=== PATIENT | male | born 1970 | race Caucasian/White ===

== ENCOUNTER 2017-11-09 12:14 | Inpatient (IN) ==
[2017-11-09] MEDS ORDERED: Aspirin 325 MG TABLET PO ONE (12:35)
[2017-11-09] MEDS ORDERED: Ipratropium/Albuterol Neb 3 ML IH ONE (12:59)
--- NOTE | 2017-11-09 13:00 | Emergency Department Note ---
Disposition Clinical Impression: Atrial fibrillation Qualifiers: Atrial fibrillation type: persistent Qualified Code(s): I48.1 - Persistent atrial fibrillation Pneumonia Qualifiers: Pneumonia type: due to unspecified organism Laterality: unspecified laterality Lung location: unspecified part of lung Qualified Code(s): J18.9 - Pneumonia, unspecified organism Aspiration pneumonia Qualifiers: Aspiration pneumonia type: unspecified Laterality: unspecified laterality Lung location: unspecified part of lung Qualified Code(s): J69.0 - Pneumonitis due to inhalation of food and vomit Disposition: Admitted As Inpatient Condition: Good Time of Disposition: 15:37 Arrhythmia/Palpitations HPI - General Chief Complaint: ED Arrhythmia/Palpitations Stated Complaint: Abnormal EKG Time Seen by Provider: 11/09/17 12:19 Source: patient, family () Limitations: no limitations Nursing Notes Reviewed: Yes Vital Signs Reviewed: Yes - History of Present Illness HPI Narrative: 47-year-old male history of hypertension presents an emergency department for abnormal EKG. He presented to his primary care physician's office Ira complaint of cough and congestion over the past 2 days. He was found to be an atrial fibrillation. He was sent here for further evaluation. On arrival here patients in atrial fibrillation with rapid ventricular response 111 beats per minute. He reports congestion in his chest unable to cough it up. He has some associated shortness of breath and chest tightness near the midsternum. He does admit over the weekend drinking alcohol more the his typical usage. Denies history of irregular heart rhythm. He is noticed some wheezing as well. Otherwise he states his noticed the fever hundred .9 last night. Otherwise he has been using inhaler for history of asthma without much relief. He denies any history of blood clots. Pt Subjective Complaint: "heart racing", atrial fibrillation - Related Data Home Medications Medication Instructions Recorded Confirmed Acetaminophen/Diphenhydramine 2 tab PO HS 11/09/17 11/09/17 [Acetaminophen Pm Caplet] Albuterol Sulfate [Proair Hfa] 1 - 2 puff IH Q4-6H PRN 11/09/17 11/09/17 Lisinopril [Zestril] 40 mg PO DAILY 11/09/17 11/09/17 Omeprazole [PriLOSEC] 20 mg PO DAILY 11/09/17 11/09/17 Previous Rx's Medication Instructions Recorded Tramadol HCl [Ultram] 50 mg PO TID PRN #15 tab 02/17/17 Allergies Allergy/AdvReac Type Severity Reaction Status Date / Time Penicillins Allergy See Verified 11/09/17 12:35 Comments All systems ED: reviewed and negative except as stated. Review of Systems: As Per HPI Constitutional: Reports: fever. Denies: chills ENT ED: Reports: congestion Cardiovascular: Reports: chest pain, dyspnea on exertion. Denies: palpitations Respiratory: Reports: cough, dyspnea, wheezes. Denies: hemoptysis Gastrointestinal: Denies: abdominal pain, nausea, vomiting Genitourinary: Denies: urgency, dysuria Musculoskeletal: Denies: back pain, neck pain Integumentary: Denies: rash, abrasion Neurological: Denies: headache Psychiatric: Denies: anxiety, depression Past Medical History - Past Medical History Attestation: Yes The following information was validated with the patient. Source: patient Medical history: Reports: hypertension, other Psychiatric history: Reports: no psych history - Social History Smoking Status: Never smoker Smokeless Tobacco Status: No Alcohol use: Reports: occasionally Drug use: Reports: none Physical Exam - General Limitations: no limitations General appearance: alert, in no apparent distress, obese - Head Head exam: atraumatic, normocephalic, normal inspection - Eye Eye exam: Present: normal appearance, PERRL, EOMI - ENT ENT exam: normal exam, normal oropharynx, mucous membranes moist - Neck Neck exam: Present: normal inspection, full ROM, trachea midline - Chest Chest inspection: Present: normal inspection, symmetric chest wall rise, tenderness (Midsternum) - Respiratory Respiratory exam: Present: wheezes (Diffuse) - Cardiovascular Cardiovascular exam: Present: tachycardia, irregular rhythm, normal heart sounds - Abdominal Exam Abdominal exam: Present: soft (Obese), Non-Tender, normal bowel sounds. Absent : tenderness, distention, guarding, rebound, rigidity - Extremities Exam Extremities exam: Present: normal inspection, full ROM, other (lymphedema). Absent: tenderness, calf tenderness - Neurological Exam Neurological exam: Present: alert, oriented X3 - Psychiatric Psychiatric exam: Present: normal affect, normal mood - Skin Skin exam: Present: warm, dry, intact, normal color. Absent: rash, cyanosis, diaphoresis Course Course Narrative: On reevaluation patient reports significant improvement of his breathing after coughing up piece of phlegm. He however continues to have some wheezing. After the breathing treatment he still continues to have some chest tightness and expiratory wheezes. His CBC is back in unremarkable. His initial chemistry heme allies and is being we drawn. Troponin unremarkable. TSH unremarkable. Chest x-ray shows cardiomegaly. BNP unremarkable. At this time his CHADSVASC scores 1 putting him at LOW risk. He will need admission for consideration for anticoagulation. Will await his chemistry and also evaluate with CT of the chest to evaluate for possible pulmonary embolism which may explain his atrial fibrillation. Patients in agreement with this plan. - Reevaluation(s) Reevaluation #1: BMP shows normal creatinine. CT of the chess to evaluate for pulmonary embolism was negative for any central large pulmonary embolism. There are concerning findings for infectious bronchiolitis with mucous plugging. Concerning for aspiration. Patient recently was at a convention and Ms. alcohol use concerning for possible aspiration event from this. Dr. Villanueva my attending spoke to the hospitalist Deb Livingston and informed them of the CT findings for concern of aspiration and recommended broadening antibiotic coverage. Otherwise will add impression aspiration pneumonia. Patient remains in stable condition. His atrial fibrillation is rate controlled. - Consultations Consultation #1: Spoke with on-call hospitalist alexandra Reed to admit for new onset atrial fibrillation, rate controlled. No further orders at this time. Awaiting CT scan to evaluate for PE. Vital Signs Temperature 98.3 F 11/09/17 12:16 Pulse Rate 124 11/09/17 12:16 Respiratory Rate 24 11/09/17 12:16 Blood Pressure 159/100 11/09/17 12:16 O2 Sat by Pulse Oximetry 100 11/09/17 12:16 Temperature 98.2 F 11/09/17 17:41 Pulse Rate 110 11/09/17 17:41 Respiratory Rate 20 11/09/17 17:41 Blood Pressure 138/86 11/09/17 17:41 O2 Sat by Pulse Oximetry 100 11/09/17 18:57 Oxygen Delivery Oxygen Delivery Room Air Arrhythmia/Palpitations - MDM Narrative Medical decision making narrative: Patient was discussed with my attending physician who agrees with ED management and final disposition. They independently evaluated the patient. Please refer to their attestation to this encounter for additional information. This note was generated by [employer] voice recognition software and as a result grammatical or spelling errors may occur using this program. - Medical Records Medical records reviewed: Yes I reviewed the patient's medical records. - Lab Data Lab results reviewed: Yes I reviewed the patient's lab results. Result diagrams: 11/09/17 12:50 11/09/17 15:30 Lab Results 11/09/17 11/09/17 11/09/17 Range/Units 12:42 12:50 12:50 WBC 5.1 (4.3-11.1) K/mcL RBC 4.84 (4.19-5.50) M/mcL Hgb 13.1 (12.9-16.9) g/dL Hct 42.7 (37.5-50.1) % MCV 88.2 (83.0-100.0) fL MCH 27.1 L (28.0-33.3) pg MCHC 30.7 L (31.6-35.5) g/dL RDW 15.4 H (11.5-14.5) % Plt Count 217 (140-400) K/mcL MPV 10.8 (9.4-12.4) fL Immature Gran % 0.4 (0-4) % Seg Neutrophils % 65.6 % Lymphocytes % 21.4 % Monocytes % 10.0 % Eosinophils % 2.0 % Basophils % 0.6 % Neutrophils # 3.3 (1.6-8.9) K/mcL Lymphocytes # 1.1 (0.6-4.6) K/mcL Monocytes # 0.5 (0.0-1.3) K/mcL Eosinophils # 0.1 (0.0-0.6) K/mcL Basophils # 0.0 (0.0-0.2) K/mcL PT 12.0 (9.4-12.1) Seconds INR 1.1 APTT 27.9 (26.0-36.0) Seconds Sodium Potassium Chloride Carbon Dioxide BUN Creatinine Est GFR ( Amer) Est GFR (Non-Af Amer) BUN/Creatinine Ratio Glucose Calculated Osmolality Calcium Magnesium Troponin I (< 0.04) ng/mL B-Natriuretic Peptide (Less than 100) pg/mL TSH (0.340-5.600) mcIU/mL Urine Color Yellow (Yellow) Urine Clarity Clear (Clear) Urine pH 7.0 (5.0-8.0) pH Units Ur Specific [place] 1.015 (1.010-1.025) Urine Protein Negative (Neg-Trace) mg/dL Urine Glucose (UA) Normal (Normal) mg/dL Urine Ketones Negative (Negative) mg/dL Urine Blood Negative (Negative) Urine Nitrite Negative (Negative) Urine Bilirubin Negative (Negative) Urine Urobilinogen >=8.0 H (Normal) mg/dL Ur Leukocyte Esterase Negative (Negative) Ur Culture Indicated? NO (NO) Specimen Rejected 11/09/17 11/09/17 11/09/17 Range/Units 12:50 12:50 12:50 WBC (4.3-11.1) K/mcL RBC (4.19-5.50) M/mcL Hgb (12.9-16.9) g/dL Hct (37.5-50.1) % MCV (83.0-100.0) fL MCH (28.0-33.3) pg MCHC (31.6-35.5) g/dL RDW (11.5-14.5) % Plt Count (140-400) K/mcL MPV (9.4-12.4) fL Immature Gran % (0-4) % Seg Neutrophils % % Lymphocytes % % Monocytes % % Eosinophils % % Basophils % % Neutrophils # (1.6-8.9) K/mcL Lymphocytes # (0.6-4.6) K/mcL Monocytes # (0.0-1.3) K/mcL Eosinophils # (0.0-0.6) K/mcL Basophils # (0.0-0.2) K/mcL PT (9.4-12.1) Seconds INR APTT (26.0-36.0) Seconds Sodium Cancelled Potassium Cancelled Chloride Cancelled Carbon Dioxide Cancelled BUN Cancelled Creatinine Cancelled Est GFR ( Amer) Cancelled Est GFR (Non-Af Amer) Cancelled BUN/Creatinine Ratio Cancelled Glucose Cancelled Calculated Osmolality Cancelled Calcium Cancelled Magnesium Cancelled Troponin I < 0.03 (< 0.04) ng/mL B-Natriuretic Peptide 84 (Less than 100) pg/mL TSH 2.006 (0.340-5.600) mcIU/mL Urine Color (Yellow) Urine Clarity (Clear) Urine pH (5.0-8.0) pH Units Ur Specific [place] (1.010-1.025) Urine Protein (Neg-Trace) mg/dL Urine Glucose (UA) (Normal) mg/dL Urine Ketones (Negative) mg/dL Urine Blood (Negative) Urine Nitrite (Negative) Urine Bilirubin (Negative) Urine Urobilinogen (Normal) mg/dL Ur Leukocyte Esterase (Negative) Ur Culture Indicated? (NO) Specimen Rejected Hemolyzed 11/09/17 Range/Units 15:30 WBC (4.3-11.1) K/mcL RBC (4.19-5.50) M/mcL Hgb (12.9-16.9) g/dL Hct (37.5-50.1) % MCV (83.0-100.0) fL MCH (28.0-33.3) pg MCHC (31.6-35.5) g/dL RDW (11.5-14.5) % Plt Count (140-400) K/mcL MPV (9.4-12.4) fL Immature Gran % (0-4) % Seg Neutrophils % % Lymphocytes % % Monocytes % % Eosinophils % % Basophils % % Neutrophils # (1.6-8.9) K/mcL Lymphocytes # (0.6-4.6) K/mcL Monocytes # (0.0-1.3) K/mcL Eosinophils # (0.0-0.6) K/mcL Basophils # (0.0-0.2) K/mcL PT (9.4-12.1) Seconds INR APTT (26.0-36.0) Seconds Sodium 138 Potassium 4.2 Chloride 105 Carbon Dioxide 27 BUN 12 Creatinine 0.48 L Est GFR ( Amer) > 60 Est GFR (Non-Af Amer) > 60 BUN/Creatinine Ratio 25 Glucose 89 Calculated Osmolality 285 Calcium 8.8 Magnesium 2.3 Troponin I (< 0.04) ng/mL B-Natriuretic Peptide (Less than 100) pg/mL TSH (0.340-5.600) mcIU/mL Urine Color (Yellow) Urine Clarity (Clear) Urine pH (5.0-8.0) pH Units Ur Specific [place] (1.010-1.025) Urine Protein (Neg-Trace) mg/dL Urine Glucose (UA) (Normal) mg/dL Urine Ketones (Negative) mg/dL Urine Blood (Negative) Urine Nitrite (Negative) Urine Bilirubin (Negative) Urine Urobilinogen (Normal) mg/dL Ur Leukocyte Esterase (Negative) Ur Culture Indicated? (NO) Specimen Rejected - Radiology Data Radiology results reviewed: Yes I reviewed the patient's radiology results. Chest X-Ray 11/09/17 12:35 IMPRESSION: Cardiomegaly. No radiographic evidence of acute pulmonary disease. D/ / Elvin Sepulveda / Elvin Sepulveda Interpreting Provider: Elvin Sepulveda Chest CTA 11/09/17 15:25 IMPRESSION: 1. Limited evaluation of the segmental and subsegmental pulmonary arterial branches. No central pulmonary embolism is detected. 2. Inflammatory tree-in-bud nodules within the left lower lobe, along with ground-glass opacity, compatible with infectious bronchiolitis along with bronchopneumonia. There is also associated bronchial wall thickening and mucous plugging. 3. Correlate with any clinical evidence of aspiration. 4. Relatively prominent mural thickening involving the distal esophagus. Correlate with clinical evidence of esophagitis. Direct visualization should be considered. D/ / Neeraj Pulliam MD / Neeraj Pulliam MD Interpreting Provider: Neerja Pulliam MD - EKG Data EKG attestation: Yes I reviewed and interpreted this EKG. EKG results narrative: EKG performed 1222 atrial fibrillation with rapid ventricular response 111 beats per minute, no ST elevation or depression, no T-wave version. Moderate intraventricular conduction delay QRS 114. Intervals within normal limits. There is no old EKG available for comparison at this time other than at primary care physician which showed atrial fibrillation as well suspected new onset. Attestation Statement - Attestation Attestation: I, Sunny Villanueva DO, examined this patient [id number] and my medical decision-making was reviewed with Art Brady DO , Resident Physician. I agree with the documented findings, disposition and treatment plan as described except to the extent set forth below. Please see my progress notes for details.
[2017-11-09 13:20] LABS: Bilirubin,Urine Negative (Negative); Blood,Urine Negative (Negative); Clarity,Urine Clear (Clear); Color,Urine Yellow (Yellow); Glucose,Urine (UA) Normal (Normal); Ketones,Urine Negative (Negative); Leukocyte Esterase,Urine Negative (Negative); Nitrite,Urine Negative (Negative); Protein,Urine Negative (Neg-Trace); Specific Gravity,Urine 1.015 (1.010-1.025); Urobilinogen,Urine >=8.0 mg/dL (Normal)
[2017-11-09 13:22] LABS: Basophils % 0.6 %; Eosinophils # 0.1 K/mcL (0.0-0.6); Hematocrit 42.7 % (37.5-50.1); Hemoglobin 13.1 g/dL (12.9-16.9); Immature Granulocytes % 0.4 % (0-4); Lymphocytes # 1.1 K/mcL (0.6-4.6); Lymphocytes % 21.4 %; Mean Corpuscular HGB Conc 30.7 g/dL (31.6-35.5); Mean Corpuscular Hemoglobin 27.1 pg (28.0-33.3); Mean Corpuscular Volume 88.2 fL (83.0-100.0); Mean Platelet Volume 10.8 fL (9.4-12.4); Monocytes # 0.5 K/mcL (0.0-1.3); Neutrophils # 3.3 K/mcL (1.6-8.9); Platelet Count 217 K/mcL (140-400); Red Blood Count 4.84 M/mcL (4.19-5.50); Red Cell Distribution Width 15.4 % (11.5-14.5); Segmented Neutrophils % 65.6 %
[2017-11-09 13:39] LABS: Troponin I < 0.03 ng/mL (< 0.04)
[2017-11-09 13:52] LABS: Thyroid Stimulating Hormone 2.006 mcIU/mL (0.340-5.600)
--- NOTE | 2017-11-09 14:06 | Emergency Department Note ---
Disposition Clinical Impression: Pneumonia Atrial fibrillation Qualifiers: Atrial fibrillation type: persistent Qualified Code(s): I48.1 - Persistent atrial fibrillation Disposition: Admitted As Inpatient Condition: Good Time of Disposition: 17:36 General Adult HPI - General Chief complaint: ED Arrhythmia/Palpitations Stated complaint: Abnormal EKG Time Seen by Provider: 11/09/17 12:19 Source: patient Limitations: no limitations - History of Present Illness Pain Scale: 0 - Related Data Home Medications Medication Instructions Recorded Confirmed Acetaminophen/Diphenhydramine 2 tab PO HS 11/09/17 11/09/17 [Acetaminophen Pm Caplet] Albuterol Sulfate [Proair Hfa] 1 - 2 puff IH Q4-6H PRN 11/09/17 11/09/17 Lisinopril [Zestril] 40 mg PO DAILY 11/09/17 11/09/17 Omeprazole [PriLOSEC] 20 mg PO DAILY 11/09/17 11/09/17 Previous Rx's Medication Instructions Recorded Tramadol HCl [Ultram] 50 mg PO TID PRN #15 tab 02/17/17 Allergies Allergy/AdvReac Type Severity Reaction Status Date / Time Penicillins Allergy See Verified 11/09/17 12:35 Comments Past Medical History - Past Medical History Medical history: Reports: hypertension, other Psychiatric history: Reports: no psych history - Social History Smoking Status: Never smoker Smokeless Tobacco Status: No Alcohol use: Reports: occasionally Drug use: Reports: none Physical Exam - General Limitations: no limitations General appearance: alert, in no apparent distress Course Vital Signs Temperature 98.3 F 11/09/17 12:16 Pulse Rate 124 11/09/17 12:16 Respiratory Rate 24 11/09/17 12:16 Blood Pressure 159/100 11/09/17 12:16 O2 Sat by Pulse Oximetry 100 11/09/17 12:16 Temperature 98.6 F 11/09/17 17:26 Pulse Rate 104 11/09/17 15:05 Respiratory Rate 20 11/09/17 17:26 Blood Pressure 153/104 11/09/17 17:26 O2 Sat by Pulse Oximetry 100 11/09/17 15:05 Oxygen Delivery Oxygen Delivery Room Air Medical Decision Making - Lab Data Result diagrams: 11/09/17 12:50 11/09/17 15:30 Lab Results 11/09/17 11/09/17 11/09/17 Range/Units 12:42 12:50 12:50 WBC 5.1 (4.3-11.1) K/mcL RBC 4.84 (4.19-5.50) M/mcL Hgb 13.1 (12.9-16.9) g/dL Hct 42.7 (37.5-50.1) % MCV 88.2 (83.0-100.0) fL MCH 27.1 L (28.0-33.3) pg MCHC 30.7 L (31.6-35.5) g/dL RDW 15.4 H (11.5-14.5) % Plt Count 217 (140-400) K/mcL MPV 10.8 (9.4-12.4) fL Immature Gran % 0.4 (0-4) % Seg Neutrophils % 65.6 % Lymphocytes % 21.4 % Monocytes % 10.0 % Eosinophils % 2.0 % Basophils % 0.6 % Neutrophils # 3.3 (1.6-8.9) K/mcL Lymphocytes # 1.1 (0.6-4.6) K/mcL Monocytes # 0.5 (0.0-1.3) K/mcL Eosinophils # 0.1 (0.0-0.6) K/mcL Basophils # 0.0 (0.0-0.2) K/mcL PT 12.0 (9.4-12.1) Seconds INR 1.1 APTT 27.9 (26.0-36.0) Seconds Sodium Potassium Chloride Carbon Dioxide BUN Creatinine Est GFR ( Amer) Est GFR (Non-Af Amer) BUN/Creatinine Ratio Glucose Calculated Osmolality Calcium Magnesium Troponin I (< 0.04) ng/mL B-Natriuretic Peptide (Less than 100) pg/mL TSH (0.340-5.600) mcIU/mL Urine Color Yellow (Yellow) Urine Clarity Clear (Clear) Urine pH 7.0 (5.0-8.0) pH Units Ur Specific [place] 1.015 (1.010-1.025) Urine Protein Negative (Neg-Trace) mg/dL Urine Glucose (UA) Normal (Normal) mg/dL Urine Ketones Negative (Negative) mg/dL Urine Blood Negative (Negative) Urine Nitrite Negative (Negative) Urine Bilirubin Negative (Negative) Urine Urobilinogen >=8.0 H (Normal) mg/dL Ur Leukocyte Esterase Negative (Negative) Ur Culture Indicated? NO (NO) Specimen Rejected 11/09/17 11/09/17 11/09/17 Range/Units 12:50 12:50 12:50 WBC (4.3-11.1) K/mcL RBC (4.19-5.50) M/mcL Hgb (12.9-16.9) g/dL Hct (37.5-50.1) % MCV (83.0-100.0) fL MCH (28.0-33.3) pg MCHC (31.6-35.5) g/dL RDW (11.5-14.5) % Plt Count (140-400) K/mcL MPV (9.4-12.4) fL Immature Gran % (0-4) % Seg Neutrophils % % Lymphocytes % % Monocytes % % Eosinophils % % Basophils % % Neutrophils # (1.6-8.9) K/mcL Lymphocytes # (0.6-4.6) K/mcL Monocytes # (0.0-1.3) K/mcL Eosinophils # (0.0-0.6) K/mcL Basophils # (0.0-0.2) K/mcL PT (9.4-12.1) Seconds INR APTT (26.0-36.0) Seconds Sodium Cancelled Potassium Cancelled Chloride Cancelled Carbon Dioxide Cancelled BUN Cancelled Creatinine Cancelled Est GFR ( Amer) Cancelled Est GFR (Non-Af Amer) Cancelled BUN/Creatinine Ratio Cancelled Glucose Cancelled Calculated Osmolality Cancelled Calcium Cancelled Magnesium Cancelled Troponin I < 0.03 (< 0.04) ng/mL B-Natriuretic Peptide 84 (Less than 100) pg/mL TSH 2.006 (0.340-5.600) mcIU/mL Urine Color (Yellow) Urine Clarity (Clear) Urine pH (5.0-8.0) pH Units Ur Specific [place] (1.010-1.025) Urine Protein (Neg-Trace) mg/dL Urine Glucose (UA) (Normal) mg/dL Urine Ketones (Negative) mg/dL Urine Blood (Negative) Urine Nitrite (Negative) Urine Bilirubin (Negative) Urine Urobilinogen (Normal) mg/dL Ur Leukocyte Esterase (Negative) Ur Culture Indicated? (NO) Specimen Rejected Hemolyzed 11/09/17 Range/Units 15:30 WBC (4.3-11.1) K/mcL RBC (4.19-5.50) M/mcL Hgb (12.9-16.9) g/dL Hct (37.5-50.1) % MCV (83.0-100.0) fL MCH (28.0-33.3) pg MCHC (31.6-35.5) g/dL RDW (11.5-14.5) % Plt Count (140-400) K/mcL MPV (9.4-12.4) fL Immature Gran % (0-4) % Seg Neutrophils % % Lymphocytes % % Monocytes % % Eosinophils % % Basophils % % Neutrophils # (1.6-8.9) K/mcL Lymphocytes # (0.6-4.6) K/mcL Monocytes # (0.0-1.3) K/mcL Eosinophils # (0.0-0.6) K/mcL Basophils # (0.0-0.2) K/mcL PT (9.4-12.1) Seconds INR APTT (26.0-36.0) Seconds Sodium 138 Potassium 4.2 Chloride 105 Carbon Dioxide 27 BUN 12 Creatinine 0.48 L Est GFR ( Amer) > 60 Est GFR (Non-Af Amer) > 60 BUN/Creatinine Ratio 25 Glucose 89 Calculated Osmolality 285 Calcium 8.8 Magnesium 2.3 Troponin I (< 0.04) ng/mL B-Natriuretic Peptide (Less than 100) pg/mL TSH (0.340-5.600) mcIU/mL Urine Color (Yellow) Urine Clarity (Clear) Urine pH (5.0-8.0) pH Units Ur Specific [place] (1.010-1.025) Urine Protein (Neg-Trace) mg/dL Urine Glucose (UA) (Normal) mg/dL Urine Ketones (Negative) mg/dL Urine Blood (Negative) Urine Nitrite (Negative) Urine Bilirubin (Negative) Urine Urobilinogen (Normal) mg/dL Ur Leukocyte Esterase (Negative) Ur Culture Indicated? (NO) Specimen Rejected Attestation Statement - Attestation Attestation: I, Sunny Villanueva DO, examined this patient [id number] and my medical decision-making was reviewed with Art Brady DO , Resident Physician. I agree with the documented findings, disposition and treatment plan as described except to the extent set forth below. Please see my progress notes for details. 47-year-old male presents to the emergency room for evaluation of abnormal EKG. Patient was at his office today getting evaluated for upper respiratory infection cough and cold. EKG was collected at that facility were concerned for the presentation. Patient is found to have A. fib RVR. Patient has never had anything like this before. He is morbidly obese and has significant truncal obesity but denies any history of cardiac related disease or pulmonary related illness. Patient does have underlying asthma that he does feel like is exacerbated at this point. He is currently denying chest pain fevers chills nausea vomiting diarrhea. His any headache or vision change. He does have increased work of breathing and difficulty taking full breaths. Patient will be provided breathing treatments, chest x-ray EKG labs including magnesium troponin and BNP. Patient will most likely require admission the hospital for definitive management. His heart rate has fluctuated from 92-110 bpm. No acute intervention required at this point considering his blood pressure and his heart rate of been stable. Disposition to be determined was a full workup and treatment course are established. Patient does not take aspirin at this point. He was given a single aspirin here. Disposition will be determined once workup is completed. Patient does not require anticoagulation at this point considering his chads vasc score is low. see detailed documentation of the physical exam, medical intervention, medical decision-making and disposition in the resident physician's note. No critical care provider the patient's treatment course at this time. 1425 Patient is feeling better after breathing treatment. Chest x-ray is unremarkable outside a cardiomegaly. Patient has stable CBC urinalysis negative troponin and BNP at this time. Patient will still require admission for further evaluation of his cardiac arrhythmia at this point. Patient is otherwise clinically stable and feeling better this time. Patient will be given a second set of intravenous. CT angiography chest with be ordered to rule out any other potential pulmonary source of this point. Patient will be admitted for definitive management. Hospitalist was contacted. No other concerns or issues noted from nurse out at this point. 1700 CT angiography of the chest does not show any acute signs of central pulmonary emboli. Limited study secondary to poor infusion of contrast. Patient does have potential tree-in-bud formation consistent with pneumonia. Antibiotics were ordered by the hospitalist on my review of the chart. Patient otherwise is being symptomatically treated for what appears to be possible pneumonia exacerbating the A. fib RVR that is a new diagnosis of this point. Patient's heart rate has been rate controlled initially without any medical intervention being required. Patient was admitted to the floor without a Cardizem drip started this time considering his heart rate was less than 105 throughout the majority treatment course here in the emergency room. This information will be passed on the hospitalist.
[2017-11-09 14:28] LABS: INR 1.1
[2017-11-09 14:31] LABS: Activated Partial Thrombo Time 27.9 Seconds (26.0-36.0)
[2017-11-09] MEDS ORDERED: Isovue-370 500 ML INFUS..BTL IV ONE (15:25)
[2017-11-09] MEDS ORDERED: traMADol 50 MG TABLET PO PRN (16:07)
[2017-11-09] MEDS ORDERED: Naloxone 0.4 MG/ML INJ IVP PRN (16:11)
--- NOTE | 2017-11-09 16:16 | Internal Med History&Physical ---
<Mary Reynoso - Last Filed: 11/09/17 16:43> Date of Encounter: 11/09/17 Time of Encounter: 16:14 Internal Medicine - H&P: HPI Admitted From: Home Plans for Post Hospital Care: Home History of present illness: 47-year-old male presents to the emergency room for evaluation of abnormal EKG. Patient was at his office today getting evaluated for upper respiratory infection cough and cold. EKG was collected at that facility were concerned for the presentation. Patient is found to have A. fib RVR. Patient has never had anything like this before. He is morbidly obese and has significant truncal obesity but denies any history of cardiac related disease or pulmonary related illness. Patient does have underlying asthma that he does feel like is exacerbated at this point. He is currently denying chest pain fevers chills nausea vomiting diarrhea. His any headache or vision change. He does have increased work of breathing and difficulty taking full breaths. At the ED, his heart rate is around 100-110, BP stable, labs were unremarkable. He will be admitted for further management. Past Med Surg Social Fam HX - Past Medical History Medical history: hypertension, other Psychiatric history: no psych history - Social History Smoking Status: Never smoker Smokeless Tobacco Status: No Alcohol use: occasionally Drug use: none Internal Medicine - H&P: Meds Tramadol HCl [Ultram] 50 mg PO TID PRN #15 tab 02/17/17 [Rx] Acetaminophen/Diphenhydramine [Acetaminophen Pm Caplet] 2 tab PO HS 11/09/17 [ History] Albuterol Sulfate [Proair Hfa] 1 - 2 puff IH Q4-6H PRN 11/09/17 [History] Lisinopril [Zestril] 40 mg PO DAILY 11/09/17 [History] Omeprazole [PriLOSEC] 20 mg PO DAILY 11/09/17 [History] 3 Allergy/AdvReac Type Severity Reaction Status Date / Time Penicillins Allergy See Verified 11/09/17 12:35 Comments All Systems PM: A 10-system review of systems was performed and is negative for pertinent findings except as documented above in the HPI. Review of systems: REVIEW OF SYSTEMS: CONSTITUTIONAL: No weight loss, fever, chills, weakness or fatigue. HEENT: Eyes: No visual loss, blurred vision, double vision or yellow sclerae. Ears, Nose, Throat: No hearing loss, sneezing, congestion, runny nose or sore throat. SKIN: No rash or itching. CARDIOVASCULAR: No chest pain, chest pressure or chest discomfort. No palpitations or edema. RESPIRATORY: No shortness of breath, cough or sputum. GASTROINTESTINAL: No anorexia, nausea, vomiting or diarrhea. No abdominal pain or blood. GENITOURINARY: No dysuria, urgency, or frequency. NEUROLOGICAL: No headache, dizziness, syncope, paralysis, ataxia, numbness or tingling in the extremities. No change in bowel or bladder control. MUSCULOSKELETAL: No muscle, back pain, joint pain or stiffness. HEMATOLOGIC: No anemia, bleeding or bruising. LYMPHATICS: No enlarged nodes. No history of splenectomy. PSYCHIATRIC: No history of depression or anxiety. ENDOCRINOLOGIC: No reports of sweating, cold or heat intolerance. No polyuria or polydipsia. - Constitutional Vitals: Temp Pulse Resp BP Pulse Ox 98.3 F 104 20 150/71 100 11/09/17 12:30 11/09/17 15:05 11/09/17 15:05 11/09/17 15:05 11/09/17 15:05 General appearance: Present: A&O X 3 Exam: PHYSICAL EXAMINATION: GENERAL APPEARANCE: The patient is alert, oriented and in no acute distress. HEENT: Head is normocephalic. The sinuses are nontender. Pupils are equal and reactive. The nares are patent. Oropharynx clear without lesions. NECK: Supple without lymphadenopathy. HEART: Regular rate and rhythm. LUNGS: No crackles or wheezes are heard. ABDOMEN: Soft, nontender, nondistended with good bowel sounds heard. Inguinal area is normal. EXTREMITIES: Without cyanosis, clubbing or edema. NEUROLOGICAL: Gross nonfocal. SKIN: Warm and dry without any rash. Internal Med - H&P Results - Labs CBC & Chem 7: 11/09/17 12:50 11/09/17 15:30 Labs: Short CBC 11/09/17 Range/Units 12:50 WBC 5.1 (4.3-11.1) K/mcL Hgb 13.1 (12.9-16.9) g/dL Hct 42.7 (37.5-50.1) % Plt Count 217 (140-400) K/mcL Neutrophils # 3.3 (1.6-8.9) K/mcL BMP 11/09/17 12:50 Sodium Cancelled Potassium Cancelled Chloride Cancelled Carbon Dioxide Cancelled BUN Cancelled Creatinine Cancelled Glucose Cancelled Calcium Cancelled Cardiac Enzymes 11/09/17 Range/Units 12:50 Troponin I < 0.03 (< 0.04) ng/mL Urine 11/09/17 Range/Units 12:42 Urine Color Yellow (Yellow) Urine Clarity Clear (Clear) Urine pH 7.0 (5.0-8.0) pH Units Ur Specific Bridger 1.015 (1.010-1.025) Urine Protein Negative (Neg-Trace) mg/dL Urine Glucose (UA) Normal (Normal) mg/dL - Impressions ITS Impressions Chest X-Ray 11/09/17 12:35 IMPRESSION: Cardiomegaly. No radiographic evidence of acute pulmonary disease. D/ / Elvin Sepulveda / Elvin Sepulveda Interpreting Provider: Elvin Sepulveda - Assessment and plan (1) Atrial fibrillation Current Visit: Yes Status: Acute Assessment and plan: 47 male with past medical history of hypertension and sleep apnea presented with new onset of atrial fibrillation. - TSH is normal, we will order echocardiogram to rule out structural abnormalities. - CHDAS2 Vas score 1, Received one dose of aspirin at ED, continue aspirin. - Heart rate was fairly well controlled without any medication, HR 100-110, will add Cardizem ER 60 mg twice a day. - Automatic Pinsetter Adjuster consulted. Qualifiers: Atrial fibrillation type: persistent Qualified Code(s): I48.1 - Persistent atrial fibrillation (2) Hypertension Current Visit: No Status: Chronic Assessment and plan: - BP elevated with SBP around 150, continue lisinopril, add Cardizem ER for bolus rate control and BP control. Qualifiers: Hypertension type: essential hypertension Qualified Code(s): I10 - Essential (primary) hypertension (3) TANNER (obstructive sleep apnea) Current Visit: No Status: Chronic Assessment and plan: - Continue CPAP. (4) Pneumonia Current Visit: Yes Status: Suspected Assessment and plan: - Chest x-ray revealed with attending, right middle lobe pneumonia suspected, will start patient empirically with IV Levaquin. - Blood culture and sputum culture ordered. Flu swabs negative. Qualifiers: Pneumonia type: due to unspecified organism Laterality: right Lung location: middle lobe of lung Qualified Code(s): J18.1 - Lobar pneumonia, unspecified organism - Time Spent With Patient Total time spent is greater than 50% in coordination of care (as documented) at patient's floor/unit and/or counseling patient: Greater than 35 minutes <Lou Singletary - Last Filed: 11/09/17 17:24> Date of Encounter: 11/09/17 Internal Medicine - H&P: HPI History of present illness: Mr. Fernandes is a 47 year old male All Systems PM: A 10-system review of systems was performed and is negative for pertinent findings except as documented above in the HPI. - Constitutional Vitals: Temp Pulse Resp BP Pulse Ox 98.3 F 104 20 150/71 100 11/09/17 12:30 11/09/17 15:05 11/09/17 15:05 11/09/17 15:05 11/09/17 15:05 Internal Med - H&P Results - Labs CBC & Chem 7: 11/09/17 12:50 11/09/17 15:30 - Attending Attestation Patient examined, reviewed the note. As per patient had fever with productive sputum for last few days but did not seek medical advice. Today he developed worsening of symptoms along with shortness of breath and chest pain therefore went to the CP office where EKG was performed with finding of A. fib. Last week patient's had pneumonia and over the weekend he was with coworker while traveling who also had severe respiratory infection and got admitted in the hospital. Therefore patient had recent exposure of possible pneumonia. Patient had history of hypertension and TANNER with CPAP, status post bariatric surgery and also had IVC filter as a prevention before the bariatric surgery. Chest x-ray radiology reading not suggestive of pneumonia but on reviewing the images it appeared right middle lobe infiltrate. Based on clinical symptoms and history of respiratory infection exposure I will treat patient for possible pneumonia with antibiotic, DuoNeb, spirometry, oxygen supplementation. It could also be leading present A. fib with RVR. At present heart rate is not significantly high therefore oral rate control medicine started along with aspirin with low chads score. Echocardiogram ordered. Will also consult cardiology. CT angiogram ordered in the ER but no report is available yet. - Assessment and plan (1) Atrial fibrillation Current Visit: Yes Status: Acute Qualifiers: Atrial fibrillation type: persistent Qualified Code(s): I48.1 - Persistent atrial fibrillation (2) Hypertension Current Visit: No Status: Chronic Qualifiers: Hypertension type: essential hypertension Qualified Code(s): I10 - Essential (primary) hypertension (3) TANNER (obstructive sleep apnea) Current Visit: No Status: Chronic (4) Pneumonia Current Visit: Yes Status: Suspected Qualifiers: Pneumonia type: due to unspecified organism Laterality: right Lung location: middle lobe of lung Qualified Code(s): J18.1 - Lobar pneumonia, unspecified organism - Time Spent With Patient Total time spent is greater than 50% in coordination of care (as documented) at patient's floor/unit and/or counseling patient:
[2017-11-09 16:23] LABS: BUN/Creatinine Ratio 25 (6-26); Blood Urea Nitrogen 12 mg/dL (6-20); Calcium 8.8 mg/dL (8.6-10.3); Carbon Dioxide 27 mEq/L (23-29); Chloride 105 mEq/L (98-107); Glucose 89 mg/dL (70-105); Magnesium 2.3 mg/dL (1.6-2.6); Osmolality,Calculated 285 (280-300); Potassium 4.2 mEq/L (3.5-5.1); Sodium 138 mEq/L (136-145); eGFR For African Americans > 60 (> 60); eGFR For Non-African Americans > 60 (> 60)
[2017-11-09] MEDS: Aspirin Enteric Coated 81 MG Tablet PO SCH (17:51)
[2017-11-09] MEDS: *HR* Heparin 5,000 UNIT/ML VIAL SQ SCH (18:33)
[2017-11-09] MEDS: Levofloxacin 750 MG/150 ML 750 MG/150 ML BAG IVPB SCH (18:33)
[2017-11-09] MEDS: Acetaminophen 325 MG TABLET PO PRN (21:55)
[2017-11-09] MEDS: Diltiazem SR (12hr) 60 MG CAPSULE PO SCH (21:56)
[2017-11-09] MEDS: Lisinopril 20 MG TABLET PO SCH (22:44)
--- NOTE | 2017-11-10 00:30 | Event Note ---
Date of Encounter: 11/09/17 Time of Encounter: 21:55 Alerted by pts. nurse to come and see pt. d/t HR ranging from 140s to 200. Pt. admitted w/new onset of Afib RVR as well as suspected pneumonia dx. Assessed pt. to find BP 145/109 and HR 179. Instructed nurse to give PO Cardizem 60 mg. Stayed w/pt. to monitor HR and BP. Re-check on BP at 22:09 150/103. Re-check at 22:17 158/123. HR was now in 120s to 150s and continuing to trend downwards. Instructed nurse to administer pts. lisinopril dose PO. SBP down to 130s to 150s. HR continuing to maintain at 110s to 130s. Consult to Cardiology placed at admission. Should consider placing pt. on Cardizem drip d/t uncontrolled HR at next Cardizem dosing. Respiratory Infection panel, Legionella/strep pneumoniae antigens ordered d/t pts. reports of SOB and pain w/coughing. Pt. on SQ heparin for DVT prophylaxis. Pt. to be monitored closely w/instructions to notify provider of any adverse changes in HR/BP/status.
[2017-11-10] MEDS: ADVIL PM PO SCH ×2 (00:57→21:04)
[2017-11-10 05:36] LABS: Basophils % 0.4 %; Eosinophils # 0.1 K/mcL (0.0-0.6); Hematocrit 39.2 % (37.5-50.1); Hemoglobin 12.2 g/dL (12.9-16.9); Immature Granulocytes % 0.4 % (0-4); Lymphocytes # 1.4 K/mcL (0.6-4.6); Lymphocytes % 28.1 %; Mean Corpuscular HGB Conc 31.1 g/dL (31.6-35.5); Mean Corpuscular Hemoglobin 27.4 pg (28.0-33.3); Mean Corpuscular Volume 87.9 fL (83.0-100.0); Mean Platelet Volume 10.6 fL (9.4-12.4); Monocytes # 0.6 K/mcL (0.0-1.3); Monocytes % 12.6 %; Neutrophils # 2.9 K/mcL (1.6-8.9); Platelet Count 196 K/mcL (140-400); Red Blood Count 4.46 M/mcL (4.19-5.50); Red Cell Distribution Width 15.4 % (11.5-14.5); Segmented Neutrophils % 56.5 %
[2017-11-10 05:55] LABS: BUN/Creatinine Ratio 19 (6-26); Blood Urea Nitrogen 13 mg/dL (6-20); Calcium 8.6 mg/dL (8.6-10.3); Carbon Dioxide 25 mEq/L (23-29); Chloride 104 mEq/L (98-107); Glucose 94 mg/dL (70-105); Osmolality,Calculated 280 (280-300); Potassium 3.9 mEq/L (3.5-5.1); Sodium 135 mEq/L (136-145); eGFR For African Americans > 60 (> 60); eGFR For Non-African Americans > 60 (> 60)
[2017-11-10] MEDS: *HR* Heparin 5,000 UNIT/ML VIAL SQ SCH ×2 (06:13→18:16)
[2017-11-10] MEDS ORDERED: Lisinopril 20 MG TABLET PO SCH (09:00)
[2017-11-10 09:10] LABS: Adenovirus Not Detected (Not Detect)
[2017-11-10 09:11] LABS: Bordetella Pertussis Not Detected (Not Detect); Chlamydophila pneumoniae Not Detected (Not Detect); Coronavirus 229E Not Detected (Not Detect); Coronavirus HKU1 Not Detected (Not Detect); Coronavirus NL63 Not Detected (Not Detect); Coronavirus OC43 Not Detected (Not Detect); Human Metapneumovirus Not Detected (Not Detect); Human Rhinovirus/Enterovirus Not Detected (Not Detect); Influenza A Subtype 2009 H1 Not Detected (Not Detect); Influenza A Untypeable Not Detected (Not Detect); Influenza B Not Detected (Not Detect); Mycoplasma pneumoniae Not Detected (Not Detect); Parainfluenza Virus 1 Not Detected (Not Detect); Parainfluenza Virus 2 Not Detected (Not Detect); Parainfluenza Virus 3 ***DETECTED*** (Not Detect); Parainfluenza Virus 4 Not Detected (Not Detect); Respiratory Syncytial Virus Not Detected (Not Detect)
--- NOTE | 2017-11-10 09:19 | Cardiology Consult Note ---
Date of Encounter: 11/10/17 Time of Encounter: 09:18 Assessment and Plan (1) Atrial fibrillation Current Visit: Yes Status: Acute New onset afib associated with pulmonary illness. Patient heart rate 90-100 in room. Increases with exertion. We will perform echo and start patient on cardizem 60mg Q6HR. CHADVASC score 1. Qualifiers: Atrial fibrillation type: persistent Qualified Code(s): I48.1 - Persistent atrial fibrillation Discussion w patient/family: The assessment and plan as outlined above was discussed with the patient and/or family members who expressed understanding and agreement. All questions were answered. Thank you for involving us in the care of your patient. Please call with any questions. History of Present Illness Consult date: 11/10/17 Consult reason: Afib History of present illness: Mr. Fernandes is a 47 year old male who presented to the ED after PCP found the patient to be in Afib. Patient has been suffering from cough and congestion for the past few days. Has never been in Afib before. Denies any cardiac history. Patient states last evening when he tried to exert himself he became very tachycardic and felt palpitations at that time. Denies palpitations or chest pain/pressure now. Denies anticoagulation use. Patient does have history of gastric bypass approximately 14 years ago. Past Med Surg Social Fam HX - Past Medical History Attestation: Yes The following information was validated with the patient. Medical history: hypertension, other Psychiatric history: no psych history - Social History Smoking Status: Never smoker Smokeless Tobacco Status: No Alcohol use: occasionally Drug use: none Medications and Allergies Tramadol HCl [Ultram] 50 mg PO TID PRN #15 tab 02/17/17 [Rx] Acetaminophen/Diphenhydramine [Acetaminophen Pm Caplet] 2 tab PO HS 11/09/17 [ History] Albuterol Sulfate [Proair Hfa] 1 - 2 puff IH Q4-6H PRN 11/09/17 [History] Lisinopril [Zestril] 40 mg PO DAILY 11/09/17 [History] Omeprazole [PriLOSEC] 20 mg PO DAILY 11/09/17 [History] 3 Allergy/AdvReac Type Severity Reaction Status Date / Time Penicillins Allergy See Verified 11/09/17 12:35 Comments All Systems Review: The remainder of the systems were reviewed and are negative - Constitutional Constitutional: no fever(s), no headache(s) - EENT Eyes: no blurred vision, no loss of vision - Cardiovascular Cardiovascular: as per HPI - Respiratory Respiratory: cough, dyspnea, wheezing, no hemoptysis - Gastrointestinal Gastrointestinal: no abdominal pain, no diarrhea - Musculoskeletal Musculoskeletal: no abnormal gait, no muscle cramps - Integumentary Integumentary: no rash - Neurological Neurological: no abnormal speech, no focal weakness Physical Examination Vital Signs, Last 4 Hours Temp Pulse Resp BP Pulse Ox 11/10/17 06:44 98.3 F 90 15 140/82 95 General: Conversant, No Apparent Distress HEENT: Atraumatic, Normocephaly, Mucus Membranes Moist Neck: No JVD, Normal carotid pulses Cardiac: Normal S1 and S2, No Murmur, Other (irregular rate, tachycardia) Lungs: Other (diffuse expiratory wheezing heard throughout) Neuro: Alert and responsive, No focal deficits noted Abdomen: Soft, Non-Tender, Other (gastric bypass surgical scar noted) Skin: No rashes noted on visualized skin Musculoskeletal: Other (Mild chest wall tenderness to palpation) Extremities: No Clubbing, No Cyanosis, Normal Pulses Results 11/10/17 05:12 11/10/17 05:12 Lab Results 11/10/17 11/10/17 05:12 05:12 WBC 5.1 Hgb 12.2 L Hct 39.2 Plt Count 196 Sodium 135 L Potassium 3.9 Chloride 104 Carbon Dioxide 25 BUN 13 Creatinine 0.67 L Glucose 94 Calcium 8.6 Consult Discharge Plan - Plan Referrals: Smooth Morejon MD [Primary Care Provider] -
--- NOTE | 2017-11-10 09:37 | Internal Med Progress Note ---
<Ahmet Mancuso - Last Filed: 11/10/17 10:21> Date of Encounter: 11/10/17 Time of Encounter: 09:37 - Assessment and plan (1) Atrial fibrillation Current Visit: Yes Status: Acute Assessment and plan: Patient was at his PCP office for URI, found to have Afib w/ RVR on EKG and recommended to go to [place]. Patient has no previous dx of afib. On admission patient was started on cardizem, and patient was not rate controlled through the night. Cardiology is consulted. afib is most likely due to URI. Will treat/support underlying URI. TSH is WNL. CHADSVASC score of 1 (hx of HTN). - appreciate cardio's recommendations - continue ASA81 - echo pending Qualifiers: Atrial fibrillation type: persistent Qualified Code(s): I48.1 - Persistent atrial fibrillation (2) Hypertension Current Visit: Yes Status: Chronic Assessment and plan: continue home lisinopril. HTN is currently controlled. - closely follow BP Qualifiers: Hypertension type: essential hypertension Qualified Code(s): I10 - Essential (primary) hypertension (3) TANNER (obstructive sleep apnea) Current Visit: Yes Status: Chronic Assessment and plan: - Continue CPAP. (4) Pneumonia Current Visit: Yes Status: Suspected Assessment and plan: respiratoyr symptoms developed after attending a convention. Patient had temperature at home of 100.9. On exam, patient has quite a bit of wheezing. CXR showed right middle lobe pneumonia suspected, patient was empirically started with IV Levaquin. CTA confrimed inflammatory tree-in-bud nodules within left lower lobe with ground glass opacity. Legionella nad S. PNA urine Cx were negative. FLU swab negative. Serology positive for Parainfluenza 3. Patient most likely has a pneumonia superimposed on viral infection in the setting of OHS. - provided respiratory support as needed - continue levaquin day 2 - starting IV steroids - due to afib, support with xopenex - continue mucinex Qualifiers: Pneumonia type: due to unspecified organism Laterality: right Lung location: middle lobe of lung Qualified Code(s): J18.1 - Lobar pneumonia, unspecified organism (5) Morbid obesity Current Visit: Yes Status: Acute Assessment and plan: Patient had Nette-en-y surgery 14 years ago. Prior to surgery patient was 600+ lbs, lowest weight was 8 years ago at weight of 280 lbs. 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 Patient is currently 462 lbs. Comorbidities likely include TANNER/OHS. Educated patient on the benefits of losing weight. - continue patient's PPI (6) DVT prophylaxis Current Visit: Yes Status: Acute Assessment and plan: ct heparin SQ 5000 - Time Spent With Patient Total time spent is greater than 50% in coordination of care (as documented) at patient's floor/unit and/or counseling patient: - Subjective Interval history: Mr Fernandes is seen and examined. Patient reports feeling better but continues to have wheezing while he breaths. He denies chest pain currently, nausea, vomiting, fever, chills. 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 Absent: lymphadenopathy - Respiratory Respiratory exam: Present: wheezes. Absent: accessory muscle use, rales, rhonchi - Cardiovascular Cardiovascular exam: Present: tachycardia. Absent: diastolic murmur, gallop, rubs, systolic murmur - GI/Abdominal GI/Abdominal exam: Present: normal bowel sounds, soft, no peritoneal signs. Absent: distended, tenderness - Extremities Exam Extremities exam: Present: warm, radial pulses palpable and symmetrical. Absent : calf tenderness, cyanotic, pedal edema Additional comments: lymph edema BLE - Neurological Exam Neurological exam: Present: CN II-XII intact, oriented X3, no focal deficits. Absent: pronater drift, facial droop, speech deficit - Skin Skin exam: Present: dry, intact Internal Medicine: Result - Labs CBC & Chem 7: 11/10/17 05:12 11/10/17 05:12 Labs: Short CBC 11/10/17 Range/Units 05:12 WBC 5.1 (4.3-11.1) K/mcL Hgb 12.2 L (12.9-16.9) g/dL Hct 39.2 (37.5-50.1) % Plt Count 196 (140-400) K/mcL Neutrophils # 2.9 (1.6-8.9) K/mcL BMP 11/10/17 05:12 Sodium 135 L Potassium 3.9 Chloride 104 Carbon Dioxide 25 BUN 13 Creatinine 0.67 L Glucose 94 Calcium 8.6 - ABG Interpretation ABG results: PT/INR, D-dimer PT 12.0 Seconds (9.4-12.1) 11/09/17 12:50 Consult Discharge Plan - Plan Referrals: Smooth Morejon MD [Primary Care Provider] - <Leland Pandya - Last Filed: 11/10/17 14:46> Date of Encounter: 11/10/17 - Assessment and plan (1) Atrial fibrillation Current Visit: Yes Status: Acute Qualifiers: Atrial fibrillation type: persistent Qualified Code(s): I48.1 - Persistent atrial fibrillation (2) Hypertension Current Visit: Yes Status: Chronic Qualifiers: Hypertension type: essential hypertension Qualified Code(s): I10 - Essential (primary) hypertension (3) TANNER (obstructive sleep apnea) Current Visit: Yes Status: Chronic (4) Pneumonia Current Visit: Yes Status: Suspected Qualifiers: Pneumonia type: due to unspecified organism Laterality: right Lung location: middle lobe of lung Qualified Code(s): J18.1 - Lobar pneumonia, unspecified organism (5) Morbid obesity Current Visit: Yes Status: Acute (6) DVT prophylaxis Current Visit: Yes Status: Acute - Time Spent With Patient Total time spent is greater than 50% in coordination of care (as documented) at patient's floor/unit and/or counseling patient: - Constitutional Vitals: Temp Pulse Resp BP Pulse Ox 98.7 F 88 15 124/86 96 11/10/17 11:19 11/10/17 11:19 11/10/17 11:19 11/10/17 11:19 11/10/17 11:19 Internal Medicine: Result - Labs CBC & Chem 7: 11/10/17 05:12 11/10/17 05:12 Labs: Short CBC 11/10/17 Range/Units 05:12 WBC 5.1 (4.3-11.1) K/mcL Hgb 12.2 L (12.9-16.9) g/dL Hct 39.2 (37.5-50.1) % Plt Count 196 (140-400) K/mcL Neutrophils # 2.9 (1.6-8.9) K/mcL BMP 11/10/17 05:12 Sodium 135 L Potassium 3.9 Chloride 104 Carbon Dioxide 25 BUN 13 Creatinine 0.67 L Glucose 94 Calcium 8.6 - ABG Interpretation ABG results: PT/INR, D-dimer PT 12.0 Seconds (9.4-12.1) 11/09/17 12:50 - Attending Attestation A fib with RVR likely triggered by acute bronchiolitis caused by Parainfluenza 3 with acute bronchopneumonia mild acute pulmonary edema Levaquin day #[address] of the chest showed :1. No central pulmonary embolism detected. 2. Infectious bronchiolitis with bronchopneumonia. There is also associated bronchial wall thickening and mucous plugging. 3. esophagitis.
[2017-11-10] MEDS: Diltiazem SR (12hr) 60 MG CAPSULE PO SCH (10:08)
[2017-11-10] MEDS: Aspirin Enteric Coated 81 MG Tablet PO SCH (10:08)
[2017-11-10] MEDS: Lisinopril 20 MG TABLET PO SCH ×2 (10:08→10:09)
[2017-11-10] MEDS ORDERED: methylPREDNISolone 125 MG/2 ML VIAL IVP ONE (10:24)
[2017-11-10] MEDS: Levalbuterol Neb 1.25 MG/3 ML IH SCH ×3 (10:54→21:36)
[2017-11-10] MEDS: Furosemide 20 MG/2 ML VIAL IVP SCH (11:11)
[2017-11-10] MEDS ORDERED: Perflutren Lipid Microsphere 1.3 ML in 0.9 % Sodium Chloride 8.7 ML IVP ONE (15:36)
[2017-11-10] MEDS ORDERED: Menthol 9.1 MG LOZENGE PO PRN (18:13)
[2017-11-10] MEDS: MethylPREDNISolone 40 MG/ML VIAL IVP SCH (18:16)
[2017-11-10] MEDS: Levofloxacin 750 MG/150 ML 750 MG/150 ML BAG IVPB SCH (18:16)
[2017-11-11] MEDS: Furosemide 20 MG/2 ML VIAL IVP SCH (00:55)
[2017-11-11] MEDS: MethylPREDNISolone 40 MG/ML VIAL IVP SCH (01:04)
[2017-11-11] MEDS: Levalbuterol Neb 1.25 MG/3 ML IH SCH ×2 (03:45→09:42)
[2017-11-11 05:19] LABS: Basophils % 0.2 %; Hematocrit 41.6 % (37.5-50.1); Hemoglobin 13.1 g/dL (12.9-16.9); Immature Granulocytes % 0.5 % (0-4); Lymphocytes # 0.9 K/mcL (0.6-4.6); Lymphocytes % 14.5 %; Mean Corpuscular HGB Conc 31.5 g/dL (31.6-35.5); Mean Corpuscular Hemoglobin 27.2 pg (28.0-33.3); Mean Corpuscular Volume 86.5 fL (83.0-100.0); Mean Platelet Volume 10.8 fL (9.4-12.4); Monocytes # 0.2 K/mcL (0.0-1.3); Monocytes % 3.7 %; Neutrophils # 5.1 K/mcL (1.6-8.9); Platelet Count 232 K/mcL (140-400); Red Blood Count 4.81 M/mcL (4.19-5.50); Segmented Neutrophils % 81.1 %
[2017-11-11 05:49] LABS: BUN/Creatinine Ratio 29 (6-26); Blood Urea Nitrogen 17 mg/dL (6-20); Calcium 9.1 mg/dL (8.6-10.3); Carbon Dioxide 24 mEq/L (23-29); Chloride 105 mEq/L (98-107); Glucose 223 mg/dL (70-105); Osmolality,Calculated 292 (280-300); Potassium 4.3 mEq/L (3.5-5.1); Sodium 137 mEq/L (136-145); eGFR For African Americans > 60 (> 60); eGFR For Non-African Americans > 60 (> 60)
[2017-11-11] MEDS: *HR* Heparin 5,000 UNIT/ML VIAL SQ SCH (06:30)
[2017-11-11] MEDS: Acetaminophen 325 MG TABLET PO PRN (06:34)
[2017-11-11 06:53] VITALS: BP 140/87
[2017-11-11] MEDS ORDERED: Furosemide 40 MG TABLET PO ONE (08:22)
[2017-11-11] MEDS ORDERED: levoFLOXacin 750 MG TABLET PO SCH (09:00)
[2017-11-11] MEDS ORDERED: predniSONE 20 MG TABLET PO SCH (09:00)
--- NOTE | 2017-11-11 09:18 | Discharge Summary ---
<Ahmet Mancuso - Last Filed: 11/11/17 11:44> Date of Encounter: 11/11/17 Time of Encounter: 09:10 - Discharge Diagnosis (1) Atrial fibrillation Priority: Primary Status: Acute Qualifiers: Atrial fibrillation type: persistent Qualified Code(s): I48.1 - Persistent atrial fibrillation (2) Hypertension Priority: Secondary Status: Chronic Qualifiers: Hypertension type: essential hypertension Qualified Code(s): I10 - Essential (primary) hypertension (3) TANNER (obstructive sleep apnea) Priority: Secondary Status: Chronic (4) Pneumonia Priority: Secondary Status: Suspected Qualifiers: Pneumonia type: due to unspecified organism Laterality: right Lung location: middle lobe of lung Qualified Code(s): J18.1 - Lobar pneumonia, unspecified organism (5) Morbid obesity Priority: Secondary Status: Acute (6) DVT prophylaxis Priority: Secondary Status: Acute Hospital course: Mr. Fernandes is a 47 year old male presented to [facility] after 1 week history of upper respiratory infection symptoms presented to his PCP and found to be afib w / rvr. EKG in ED confirmed Afib w/ rvr, with no previous diagnosis. Cardiac workup was performed at [facility]. CXR showed no acute cardiopulmonary disease, trop negative, BNP was 84, TSH 2.006, electroyltes were WNL. CHADSVasc2 Score was 1 and patient was started on ASA81. Patient was started on cardizem drip and cardiology was consulted. Cardizem was switched to PO, and patient remained rate controlled throughout hospitalization. Patient will be discharged on Cardizem 240 Er and will have follow up appointment with Cardiology. Further pulmonary workup included CTA to rule out PE, no signs of PE were seen, but did show potential tree-in-bud formation consistent with pneumonia. Patient was afebrile, and had no leukocytosis. Patient did have a positive parainfluenza 3. Patient was started on levaquin 750, and will be discharged with 2 days of levaquin (total 5 days), mucinex, and taper dose of Prednisone. Patient to see PCP on discharge. Had discussion with patient about weight loss. He previously had a Nette-en-y in 2003, and is interested in a revision. I recommended the patient to continue discussion with his PCP. Discharge discussed with: patient Time spent discussing smoking cessation with patient: more than 10 minutes - Time Spent with Patient Total time spent providing and/or coordinating discharge services: 40 minutes Greater than 30 minutes - Discharge Medications Prescriptions: Alginate Dressing/Cme-Cell [Maxorb 4"X8" Dressing] 1 each TP 1-3XD PRN 30 Days # 30 bandage PRN Reason: Wound Healing Diltiazem CD (24hr) [Cardizem CD] 240 mg PO DAILY 30 Days #30 cap.er.24h Furosemide [Lasix] 20 mg PO DAILY #7 tablet GuaiFENesin ER [Mucinex] 600 mg PO BID 30 Days #60 tbbp.12hr Levofloxacin [Levaquin] 750 mg PO DAILY #5 tablet predniSONE [PredniSONE] 60 mg PO DAILY 18 Days #63 tablet Home Medications: Tramadol HCl [Ultram] 50 mg PO TID PRN #15 tab 02/17/17 [Rx] Acetaminophen/Diphenhydramine [Acetaminophen Pm Caplet] 2 tab PO HS 11/09/17 [ History] Albuterol Sulfate [Proair Hfa] 1 - 2 puff IH Q4-6H PRN 11/09/17 [History] Lisinopril [Zestril] 40 mg PO DAILY 11/09/17 [History] Omeprazole [PriLOSEC] 20 mg PO DAILY 11/09/17 [History] Alginate Dressing/Cme-Cell [Maxorb 4"X8" Dressing] 1 each TP 1-3XD PRN 30 Days # 30 bandage 11/11/17 [Rx] Diltiazem CD (24hr) [Cardizem CD] 240 mg PO DAILY 30 Days #30 cap.er.24h [Rx] Furosemide [Lasix] 20 mg PO DAILY #7 tablet 11/11/17 [Rx] GuaiFENesin ER [Mucinex] 600 mg PO BID 30 Days #60 tbbp.12hr 11/11/17 [Rx] Levofloxacin [Levaquin] 750 mg PO DAILY #5 tablet 11/11/17 [Rx] predniSONE [PredniSONE] 60 mg PO DAILY 18 Days #63 tablet 11/11/17 [Rx] Allergies/Adverse Reactions: 3 Allergy/AdvReac Type Severity Reaction Status Date / Time Penicillins Allergy See Verified 11/09/17 12:35 Comments Date of admission: 11/10/17 16:26 Primary care physician: Smooth Morejon MD Discharging clinician: Ahmet Mancuso Anticipated date of discharge: 11/11/17 - Constitutional Vitals: Temp Pulse Resp BP Pulse Ox 97.2 F L 93 16 140/87 96 11/11/17 06:50 11/11/17 06:50 11/11/17 06:50 11/11/17 06:50 11/11/17 06:50 General appearance: Present: cooperative, A&O X 3, morbidly obese, pleasant, no acute distress, answers questions appropriately - Head Head exam: Present: atraumatic, normocephalic - Eye Additional comments: left eye deviated medially. - Neck Neck exam general surgery: Present: supple, trachea midline. Absent: lymphadenopathy - Respiratory Respiratory exam: Present: prolonged expiratory phase, wheezes - Cardiovascular Cardiovascular exam: Present: RRR, +S1, +S2. Absent: diastolic murmur, gallop, rubs, systolic murmur - GI/Abdominal GI/Abdominal exam: Present: normal bowel sounds, soft, no peritoneal signs. Absent: distended, tenderness - Extremities Exam Extremities exam: Present: warm, radial pulses palpable and symmetrical. Absent : calf tenderness, cyanotic, pedal edema - Neurological Exam Neurological exam: Present: CN II-XII intact, oriented X3, no focal deficits. Absent: pronater drift, facial droop, speech deficit - Skin Skin exam: Present: dry, intact - Patient Status Disposition: Home, Self-Care Condition: Good Overall status at discharge: patient is progressing back to baseline - Discharge Instructions Follow Up With: Gee Hamilton MD [Partnered Physician] - 11/30/17 9:40 am Smooth Morejon MD [Primary Care Provider] - 11/14/17 1:30 pm - Diet and Activity Activity: increase activity as tolerated <Leland Pandya H - Last Filed: 11/11/17 12:35> Date of Encounter: 11/11/17 - Discharge Diagnosis (1) Atrial fibrillation Status: Acute Qualifiers: Atrial fibrillation type: persistent Qualified Code(s): I48.1 - Persistent atrial fibrillation (2) Hypertension Status: Chronic Qualifiers: Hypertension type: essential hypertension Qualified Code(s): I10 - Essential (primary) hypertension (3) TANNER (obstructive sleep apnea) Status: Chronic (4) Pneumonia Status: Suspected Qualifiers: Pneumonia type: due to unspecified organism Laterality: right Lung location: middle lobe of lung Qualified Code(s): J18.1 - Lobar pneumonia, unspecified organism (5) Morbid obesity Status: Acute (6) DVT prophylaxis Status: Acute Hospital course: Mr. Fernandes is a 47 year old male - Time Spent with Patient Total time spent providing and/or coordinating discharge services: Date of admission: 11/10/17 16:26 Primary care physician: Smooth Morejon MD - Constitutional Vitals: Temp Pulse Resp BP Pulse Ox 97.2 F L 93 16 140/87 97 11/11/17 06:50 11/11/17 06:50 11/11/17 09:45 11/11/17 06:50 11/11/17 10:00 - Attending Attestation A fib with RVR likely triggered by acute bronchiolitis caused by Parainfluenza 3 with acute bronchopneumonia mild acute pulmonary edema Levaquin for 5 more days prednisone taper 60 mg for 3 days and taper by 10 mg every 3 days, lasix for [address] of the chest showed :1. No central pulmonary embolism detected. 2. Infectious bronchiolitis with bronchopneumonia. There is also associated bronchial wall thickening and mucous plugging. 3. esophagitis. time spent I examined this patient and my medical decision-making was reviewed with the Resident Physician. I agree with the documented findings, disposition and treatment plan as described except to the extent set forth below.
--- NOTE | 2017-11-11 09:37 | Event Note ---
Date of Encounter: 11/11/17 Time of Encounter: 09:36 - Cardiology Event Note Patient doing well today. No complaints. Denies chest pain, pressure, or palpitations. Patient rate controlled at this time. If complete echo shows maintained EF we will sign off on the patient. Patient to continue 240mg daily cardizem CD and outpatient follow up with cardiology.
[2017-11-11] MEDS: Diltiazem CD (24hr) 240 MG CAPSULE PO SCH ×2 (09:53→09:59)
[2017-11-11] MEDS: Aspirin Enteric Coated 81 MG Tablet PO SCH (09:59)
[2017-11-11] MEDS: Lisinopril 20 MG TABLET PO SCH (10:00)
--- NOTE | 2017-11-12 16:33 | Electrocardiograph Report ---
[address] [address] Test Date: 2017-11-09 Pat Name: Marshall Fernandes Department: 103 Room: 2NE18 Gender: M Special Education Supervisor: : [id number] Requested By: Sunny Villanueva Order Number: [id number] Reading MD: Jaz Hamilton Measurements Intervals [place] Rate: 111 P: WI: 0 QRS: -21 QRSD: 114 T: 20 QT: 321 QTc: 387 Interpretive Statements ATRIAL FIBRILLATION WITH RAPID VENTRICULAR RESPONSE BORDERLINE LEFT AXIS DEVIATION [QRS AXIS < -20] MODERATE INTRAVENTRICULAR CONDUCTION DELAY [110+ ms QRS DURATION] ABNORMAL RHYTHM ECG Electronically Signed On 11-12-2017 16:31:57 EDT by Jaz Hamilton
== END 2017-11-11 14:08 | disposition home or self-care (01) | DRG 202 ==
LOC: 2NENU 12:14 → EMEROO 12:14 → 2NENU 17:25
PROVIDERS: ADMIT Registered Nurse; ATTEND Registered Nurse

== ENCOUNTER 2019-09-18 13:50 | Observation (INO) ==
[2019-09-18] MEDS ORDERED: Aspirin 81 MG TAB.CHEW PO ONE (14:25)
[2019-09-18] MEDS ORDERED: Nitroglycerin 0.4 MG TAB.SUBL SL PRN (14:25)
[2019-09-18] MEDS ORDERED: Nitroglycerin 0.4 MG TAB.SUBL SL ONE (14:34)
[2019-09-18 15:09] LABS: White Blood Count 9.6 K/mcL (4.3-11.1)
[2019-09-18 15:10] LABS: Basophils % 0.2 %; Eosinophils % 0.3 %; Hematocrit 43.2 % (37.5-50.1); Hemoglobin 13.2 g/dL (12.9-16.9); Immature Granulocytes % 0.2 % (0-4); Lymphocytes # 1.2 K/mcL (0.6-4.6); Lymphocytes % 12.1 %; Mean Corpuscular HGB Conc 30.6 g/dL (31.6-35.5); Mean Corpuscular Hemoglobin 26.1 pg (28.0-33.3); Mean Corpuscular Volume 85.5 fL (83.0-100.0); Mean Platelet Volume 10.9 fL (9.4-12.4); Monocytes # 0.8 K/mcL (0.0-1.3); Monocytes % 8.1 %; Neutrophils # 7.6 K/mcL (1.6-8.9); Platelet Count 257 K/mcL (140-400); Red Blood Count 5.05 M/mcL (4.19-5.50); Red Cell Distribution Width 15.5 % (11.5-14.5); Segmented Neutrophils % 79.1 %
[2019-09-18 15:19] LABS: INR 1.5; Prothrombin Time 16.9 Seconds (9.4-12.1)
[2019-09-18 15:22] LABS: Activated Partial Thrombo Time 39.2 Seconds (26.0-36.0)
[2019-09-18 15:32] LABS: BUN/Creatinine Ratio 23 (6-26); Blood Urea Nitrogen 18 mg/dL (6-20); Calcium 9.2 mg/dL (8.6-10.3); Carbon Dioxide 24 mEq/L (23-29); Chloride 104 mEq/L (98-107); Glucose 117 mg/dL (70-105); Osmolality,Calculated 287 (280-300); Potassium 3.8 mEq/L (3.5-5.1); Sodium 137 mEq/L (136-145); Troponin I < 0.03 ng/mL (< 0.04); eGFR For African Americans > 60 (> 60); eGFR For Non-African Americans > 60 (> 60)
[2019-09-18] MEDS ORDERED: Naloxone 0.4 MG/ML INJ IVP PRN (16:43)
[2019-09-18] MEDS ORDERED: Levalbuterol Neb 1.25 MG/3 ML IH PRN (21:25)
[2019-09-19 03:33] LABS: Adenovirus Not Detected (Not Detect); Bordetella Pertussis Not Detected (Not Detect); Chlamydophila pneumoniae Not Detected (Not Detect); Coronavirus 229E Not Detected (Not Detect); Coronavirus HKU1 Not Detected (Not Detect); Coronavirus NL63 Not Detected (Not Detect); Coronavirus OC43 Not Detected (Not Detect); Human Metapneumovirus Not Detected (Not Detect); Human Rhinovirus/Enterovirus Not Detected (Not Detect); Influenza A Subtype 2009 H1 Not Detected (Not Detect); Influenza B Not Detected (Not Detect); Mycoplasma pneumoniae Not Detected (Not Detect); Parainfluenza Virus 1 Not Detected (Not Detect); Parainfluenza Virus 2 Not Detected (Not Detect); Parainfluenza Virus 3 Not Detected (Not Detect); Parainfluenza Virus 4 Not Detected (Not Detect); Respiratory Syncytial Virus Not Detected (Not Detect)
[2019-09-19 04:20] LABS: Hematocrit 40.8 % (37.5-50.1); Hemoglobin 12.7 g/dL (12.9-16.9); Mean Corpuscular HGB Conc 31.1 g/dL (31.6-35.5); Mean Corpuscular Hemoglobin 26.8 pg (28.0-33.3); Mean Corpuscular Volume 86.3 fL (83.0-100.0); Mean Platelet Volume 10.6 fL (9.4-12.4); Platelet Count 265 K/mcL (140-400); Red Blood Count 4.73 M/mcL (4.19-5.50); Red Cell Distribution Width 15.6 % (11.5-14.5); White Blood Count 8.3 K/mcL (4.3-11.1)
[2019-09-19 04:41] LABS: BUN/Creatinine Ratio 23 (6-26); Blood Urea Nitrogen 17 mg/dL (6-20); Calcium 8.8 mg/dL (8.6-10.3); Carbon Dioxide 22 mEq/L (23-29); Chloride 105 mEq/L (98-107); Glucose 96 mg/dL (70-105); Osmolality,Calculated 285 (280-300); Potassium 3.7 mEq/L (3.5-5.1); Sodium 137 mEq/L (136-145); eGFR For African Americans > 60 (> 60); eGFR For Non-African Americans > 60 (> 60)
[2019-09-19] MEDS ORDERED: Regadenoson 0.4 MG/5 ML SYRINGE IVP ONE (06:00)
[2019-09-19] MEDS ORDERED: Perflutren Lipid Microsphere 1.3 ML in 0.9 % Sodium Chloride 8.7 ML IVP ONE (07:18)
[2019-09-19] MEDS ORDERED: DilTIAZem CD (24hr) 180 MG CAP.ER.24H PO SCH (09:00)
[2019-09-19 10:59] VITALS: BP 141/83
[2019-09-19] MEDS ORDERED: *HR* Rivaroxaban 10 MG TABLET PO SCH (17:00)
[2019-09-19] MEDS ORDERED: lisinopriL 20 MG TABLET PO SCH (18:00)
== END 2019-09-19 12:10 | disposition home or self-care (01) ==
LOC: EMEROOARM 13:50 → 3BNU 13:50
PROVIDERS: ADMIT Internal Medicine; ATTEND Internal Medicine

== ENCOUNTER 2020-02-08 14:13 | Observation (INO) ==
[2020-02-08 15:06] LABS: Basophils % 0.3 %; Eosinophils % 0.5 %; Hematocrit 41.2 % (37.5-50.1); Hemoglobin 12.2 g/dL (12.9-16.9); Immature Granulocytes % 0.5 % (0-4); Lymphocytes # 1.3 K/mcL (0.6-4.6); Lymphocytes % 16.3 %; Mean Corpuscular HGB Conc 29.6 g/dL (31.6-35.5); Mean Corpuscular Hemoglobin 24.1 pg (28.0-33.3); Mean Corpuscular Volume 81.3 fL (83.0-100.0); Mean Platelet Volume 10.3 fL (9.4-12.4); Monocytes # 0.6 K/mcL (0.0-1.3); Monocytes % 7.7 %; Platelet Count 282 K/mcL (140-400); Red Blood Count 5.07 M/mcL (4.19-5.50); Red Cell Distribution Width 15.8 % (11.5-14.5); Segmented Neutrophils % 74.7 %
[2020-02-08 15:13] LABS: INR 1.8; Prothrombin Time 20.6 Seconds (9.4-12.1)
[2020-02-08 15:16] LABS: Activated Partial Thrombo Time 40.2 Seconds (26.0-36.0)
[2020-02-08 15:30] LABS: Alanine Aminotransferase 16 Units/L (7-52); Albumin 3.8 g/dL (3.5-5.7); Albumin/Globulin Ratio 1.4 (1.1-2.2); Alkaline Phosphatase 96 Units/L (34-104); Aspartate Amino Transferase 13 Units/L (13-39); BUN/Creatinine Ratio 20 (6-26); Bilirubin,Direct 0.1 mg/dL (0.0-0.2); Bilirubin,Indirect 0.2 mg/dL (0.0-1.0); Bilirubin,Total 0.3 mg/dL (0.3-1.0); Blood Urea Nitrogen 18 mg/dL (6-20); Calcium 8.7 mg/dL (8.6-10.3); Carbon Dioxide 24 mEq/L (23-29); Chloride 105 mEq/L (98-107); Globulin 2.7 g/dL (2.4-3.5); Glucose 109 mg/dL (70-105); Lipase 16 Units/L (11-82); Osmolality,Calculated 286 (280-300); Potassium 3.8 mEq/L (3.5-5.1); Sodium 137 mEq/L (136-145); Total Protein 6.5 g/dL (6.4-8.9); Troponin I < 0.03 ng/mL (< 0.04); eGFR For African Americans > 60 (> 60); eGFR For Non-African Americans > 60 (> 60)
[2020-02-08 16:08] LABS: Bilirubin,Urine Negative (Negative); Blood,Urine Negative (Negative); Clarity,Urine Clear (Clear); Color,Urine Light-Yellow (Yellow); Glucose,Urine (UA) Normal (Normal); Ketones,Urine Negative (Negative); Leukocyte Esterase,Urine Negative (Negative); Nitrite,Urine Negative (Negative); Protein,Urine Negative (Neg-Trace); Specific Gravity,Urine 1.016 (1.010-1.025)
[2020-02-08 16:56] LABS: D-Dimer < 215 ng/mLFEU (0-500)
[2020-02-09] MEDS ORDERED: Naloxone 0.4 MG/ML INJ IVP PRN (00:57)
[2020-02-09] MEDS ORDERED: *HR* LORazepam 2 MG/ML VIAL IVP ONE (01:51)
[2020-02-09] MEDS: DilTIAZem CD (24hr) 180 MG CAP.ER.24H PO SCH (08:51)
[2020-02-09] MEDS: cefTRIAXone 1,000 MG in Water for inj. (sterile) 10 ML IVP SCH (08:51)
[2020-02-09] MEDS: Aspirin 81 MG TAB.CHEW PO SCH (08:51)
[2020-02-09] MEDS ORDERED: Regadenoson 0.4 MG/5 ML SYRINGE IVP ONE (09:20)
[2020-02-09] MEDS: Cortisporin *EAR*Susp 10 ML BOTTLE RIGHT EAR SCH ×4 (11:10→20:13)
[2020-02-09] MEDS ORDERED: *HR* Rivaroxaban 10 MG TABLET PO SCH (18:00)
[2020-02-09] MEDS ORDERED: Acetaminophen 325 MG TABLET PO PRN (20:17)
[2020-02-10] MEDS ORDERED: carvediloL 6.25 MG TABLET PO SCH (09:01)
[2020-02-10] MEDS: cefTRIAXone 1,000 MG in Water for inj. (sterile) 10 ML IVP SCH (09:37)
[2020-02-10] MEDS: Cortisporin *EAR*Susp 10 ML BOTTLE RIGHT EAR SCH (09:38)
[2020-02-10] MEDS: DilTIAZem CD (24hr) 180 MG CAP.ER.24H PO SCH (09:38)
[2020-02-10] MEDS: Aspirin 81 MG TAB.CHEW PO SCH (09:38)
[2020-02-10 11:09] VITALS: BP 124/87
[2020-02-10] MEDS ORDERED: lisinopriL 20 MG TABLET PO SCH (18:00)
[2020-02-11 08:19] LABS: Estimated Average Glucose 123 mg/dl; Hemoglobin A1C 5.9 %
== END 2020-02-10 14:50 | disposition home or self-care (01) ==
LOC: 3BNU 14:13 → EMEROOARM 14:13 → 3BNU 21:49
PROVIDERS: ADMIT Internal Medicine; ATTEND Internal Medicine